=== PATIENT | female | born 1965 | race Caucasian/White ===

== ENCOUNTER 2020-03-25 05:15 | Day surgery (SDC) | payer BC ==
--- OUTSIDE RECORDS SUMMARY | 2020-03-15 19:49 | XMS ---
:1965 Author Organization [facility] Support Name Relationship Address Phone [facility] [address] [place] [address] CHANEL MOTT [address] [place] [address] Re-disclosure Warning The records that you are about to access may contain information from federally- assisted alcohol or drug abuse programs. If such information is present, then the following federally mandated warning applies: This information has been disclosed to you from records protected by federal confidentiality rules (42 CFR part 2). The federal rules prohibit you from making any further disclosure of this information unless further disclosure is expressly permitted by the written consent of the person to whom it pertains or as otherwise permitted by 42 CFR part 2. A general authorization for the release of medical or other information is NOT sufficient for this purpose. The Federal rules restrict any use of the information to criminally investigate or prosecute any alcohol or drug abuse patient.The records that you are about to access may contain highly sensitive health information, the redisclosure of which is protected by Article 27-F of the [facility] Public Health law. If you continue you may haveaccess to information: Regarding HIV / AIDS; Provided by facilities licensed or operated by the [facility] Office of Mental Health; or Provided by the [facility] Office for People With Developmental Disabilities. If such information is present, then the following [facility] mandated warning applies: This information has been disclosed to you from confidential records which are protected by state law. State law prohibits you from making any further disclosure of this information without the specific written consent of the person to whom it pertains, or as otherwise permitted by law. Any unauthorized further disclosure in violation of state law may result in a fine or group home sentence or both. A general authorization for the release of medical or other information is NOT sufficient authorization for further disclosure. Insurance Providers Payer name Policy type Policy ID Covered Covered alliance party's Policy P caitie / Coverage alliance party ID relationship to [employer] Inf ormation type hickman PPO [id number] [facility] [place] [id number] INSURANCE [facility] [id number] PLAN SELF PAY INSURANCE
[2020-03-24 09:18] VITALS: BMI 34.8
--- OUTSIDE RECORDS SUMMARY | 2020-03-25 05:19 | XMS ---
:1965 Author Organization [facility] Support Name Relationship Address Phone JOSSE MOTT DAUGHTER [address] [place] [address] [place] [address] CHANEL MOTT [address] [place] [address] Re-disclosure Warning The records that you are [...] by Article 27-F of the [facility] Public Health law. If you continue you may haveaccess to information: Regarding HIV / AIDS; Provided by facilities licensed or operated by the [facility] Office of Mental Health; or Provided by the [facility] Office for People With Developmental Disabilities. If such information is present, then the following [facility] mandated warning applies: This information has been [...] law may result in a fine or [place] [facility] sentence or both. A general authorization for the release of medical or other information is NOT sufficient authorization for further disclosure. Insurance Providers Payer name Policy type Policy ID Covered Covered democrat's Policy P caitie / Coverage democrat ID relationship to [employer] Inf ormation type hickman PPO [id number] PP [id number] [facility] [id number] INSURANCE [employer] [facility] SAULT [employer] [id number] PLAN SELF PAY INSURANCE Results ID Date Data Source [id number] 03/21/2020 01:00:00 PM EDT [facility] Name Value Range Interpretation Description Data Sup porting Code Source(s) Document(s ) SARS [facility] coronavirus 2 RNA This lab was ordered by [facility] and reported by [facility]. Procedure
--- NOTE | 2020-03-25 07:29 | HP ---
History & Physical Update - History History: No Change - Physical Physical: No Change - Assessment Assessment: No Change - Plan Plan: No Change (H&P reviwed , no changes , for hysteroscopy , D&C. polypectomy)
[2020-03-25] MEDS ORDERED: LIDOCAINE HCL/PF 2% SDV 5ML VIAL ONE (07:39)
[2020-03-25] MEDS ORDERED: DEXAMETHASONE SOD PHOSPHATE 4 MG/1 ML VIAL ONE (07:39)
[2020-03-25] MEDS ORDERED: LIDOCAINE HCL 2% JELLY (5 ML/TUBE) ONE (07:39)
[2020-03-25] MEDS ORDERED: PROPOFOL 20 ML ONE ×3 (07:40→08:33)
[2020-03-25] MEDS ORDERED: EPHEDRINE SULFATE/0.9% NACL/PF 50 MG/10 ML SYRINGE NR ONE (07:40)
[2020-03-25] MEDS ORDERED: SUCCINYLCHOLINE CHLORIDE 200 MG/10 ML SYRINGE ONE (07:40)
[2020-03-25] MEDS ORDERED: MIDAZOLAM HCL 2 MG/2 ML SINGLE DOSE VIAL ONE (07:43)
[2020-03-25] MEDS ORDERED: GLYCOPYRROLATE 0.2 MG/1 ML VIAL ONE (08:33)
[2020-03-25] MEDS ORDERED: KETOROLAC TROMETHAMINE 30 MG/1 ML VIAL ONE (08:33)
[2020-03-25] MEDS ORDERED: IBUPROFEN 600 MG TABLET (FP) PO PRN (08:36)
[2020-03-25] MEDS ORDERED: ONDANSETRON 4 MG/2 ML VIAL IVPUSH PRN (08:36)
[2020-03-25] MEDS ORDERED: oxyCODONE HCL 5 MG TABLET PO PRN (08:36)
[2020-03-25] MEDS ORDERED: IBUPROFEN 800 MG/8 ML IJ IVPB PRN (08:36)
--- NOTE | 2020-03-25 08:44 | OP ---
Operative Note - Note: Operative Date: 03/25/20 Pre-Operative Diagnosis: PMB, em polyp Operation: hysteroscopy , EM polypectomy , D&C Findings: small EM polyp, em normal Surgeon: Rudy Martínez Anesthesia: General Specimens Removed: EM polyp, EMC Estimated Blood Loss (mls): 10 Drains & Tubes with Location: none Blood Volume Replaced (mls): 0 Operative Report Dictated: Yes
[2020-03-25] MEDS ORDERED: ELECTROLYTE-148 SOLN 1,000 ML IV SCH (08:45)
[2020-03-25] MEDS ORDERED: LACTATED RINGERS SOLUTION 1,000 ML IV SCH (09:15)
[2020-03-25 09:48] VITALS: TEMP 97.8
[2020-03-25 11:20] VITALS: BP 143/82; PULSE 70
--- NOTE | 2020-03-26 08:47 | OP ---
DATE OF OPERATION: 03/25/2020 PREOPERATIVE DIAGNOSES: Postmenopausal bleeding, endometrial polyp. POSTOPERATIVE DIAGNOSES: Postmenopausal bleeding, endometrial polyp. PROCEDURE: Hysteroscopy, dilation and curettage, and polypectomy. SURGEON: Rudy Martínez MD ANESTHESIA: General. ESTIMATED BLOOD LOSS: 10 mL. DESCRIPTION OF OPERATION: Patient was taken to the operating room. Had adequate general anesthesia. In dorsal lithotomy position, examination under anesthesia revealed external genitalia to be normal. Vagina was normal. Cervix was clean, no gross lesion. Uterus was prominent. Adnexa: No masses were palpable. Then with a weighted speculum in the vagina anterior lip of the cervix was grasped with single-tooth tenaculum. Uterine cavity was sounded to 9 cm. Then cervix was slightly dilated with a Hegar dilator, and the hysteroscope was introduced. Visualization of endocervical canal appeared to be normal. Endometrium was evaluated with a polyp at the midportion of the uterus. Both cornual regions were identified. No other abnormality was noted. Then hysteroscope was withdrawn and the polyp forceps was introduced into the uterine cavity and the polyp was removed and then with a sharp curet endometrium was curetted. Then hysteroscope was introduced and complete removal of the polyp was noted. Patient tolerated procedure well, left the OR in good condition. RUDY MARTÍNEZ M.D. /[id number]
--- NOTE | 2020-03-28 16:50 | PATH ---
Surgical Pathology Report Patient Name: CAMILO MOTT [facility]. Rec. #: [id number] /Age/Gender: 1965 (Age: 54) / F Account: [id number] Location: [facility] SUR[facility]ICAL Taken: 03/25/2020 Received: 03/25/2020 Reported: 03/28/2020 Physicians: Rudy Martínez M.D. Specimen(s) Received A: ENDOMETRIAL POLYP B: ENDOMETRIAL CURETTINGS Clinical History Postmenopausal bleeding Final Diagnosis A. ENDOMETRIAL POLYP, POLYPECTOMY: ENDOMETRIAL POLYP. B. ENDOMETRIAL CURETTINGS, DILATION AND CURETTAGE: FRAGMENTS OF ENDOMETRIAL POLYP, SCANT ATROPHIC ENDOMETRIUM, AND BENIGN CERVICAL TISSUE. Electronically Signed Francy Luo M.D. Gross Description A. Received in formalin labeled "endometrial polyp," are 2 burger-red, polypoid portions of soft tissue measuring 0.4 x 0.3 x 0.1 cm and 2.0 x 0.7 x 0.3 cm. The specimens are submitted in toto in one cassette. B. Received in formalin labeled "endometrial curetting," is a 1.7 x 1.5 x 0.2 cm aggregate of burger red soft tissue fragments admixed with mucus. The formalin is filtered and the specimen is entirely submitted in one cassette. /03/25/2020 formerly [facility]03/25/2020
== END 2020-03-25 11:20 | disposition home or self-care (01) ==
LOC: JASU-SURG 05:15
PROVIDERS: ATTEND Obstetrics & Gynecology
PROC: 0UJD8ZZ Inspection of Uterus and Cervix, Via Natural or Artificial Opening Endoscopic (ICD-10-PCS; 2020-03-25)
PROC: 0UB97ZX Excision of Uterus, Via Natural or Artificial Opening, Diagnostic (ICD-10-PCS; principal; 2020-03-25 08:00)
PROC: 0UDB7ZX Extraction of Endometrium, Via Natural or Artificial Opening, Diagnostic (ICD-10-PCS; 2020-03-25 08:00)
DX: N95.0 Postmenopausal bleeding (principal); N84.0 Polyp of corpus uteri
CPT/HCPCS: 84703; 88305-TC; 94760

== ENCOUNTER 2022-11-25 04:27 | Emergency (ER) | payer BC ==
[2022-11-25 04:36] VITALS: BP 134/81; PULSE 76; RESP 18; TEMP 97.5; BMI 24.3
== END 2022-11-25 05:58 | disposition home or self-care (01) ==
LOC: JER 04:27
DX: S06.0X0A Concussion without loss of consciousness, initial encounter (principal); R11.0 Nausea; W01.198A Fall on same level from slipping, tripping and stumbling with subsequent striking against other object, initial encounter
CPT/HCPCS: 70450-TC; 99284-25